=== PATIENT | female | born 1940 | race Caucasian/White ===

== ENCOUNTER 2018-12-04 07:04 | Day surgery (SDC) | payer OTHER | END 2018-12-04 14:10 | disposition home or self-care (01) | LOC: GIL 07:04 | DX: K92.1 Melena (principal); K64.8 Other hemorrhoids; K44.9 Diaphragmatic hernia without obstruction or gangrene; K21.9 Gastro-esophageal reflux disease without esophagitis; K29.60 Other gastritis without bleeding; E78.5 Hyperlipidemia, unspecified; I10 Essential (primary) hypertension; Z79.82 Long term (current) use of aspirin | CPT/HCPCS: 43239; 88305; 88312 ==